=== PATIENT | female | born 1995 | race Caucasian/White ===

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

== ENCOUNTER 2017-02-16 18:50 | Emergency (ER) | payer OTHER | END 2017-02-16 20:06 | disposition left against medical advice (07) | LOC: EMS 18:52 | DX: R07.89 Other chest pain (principal); R05 Cough; Z53.21 Procedure and treatment not carried out due to patient leaving prior to being seen by health care provider ==